=== PATIENT | female | born 1950 | race Caucasian/White ===

== ENCOUNTER 2017-11-27 09:03 | Outpatient (CLI) | payer MEDICARE | END 2017-11-27 09:04 | disposition home or self-care (01) | LOC: BICMAMMO 09:03 | PROVIDERS: ATTEND Family Medicine | DX: Z12.31 Encounter for screening mammogram for malignant neoplasm of breast (principal) | CPT/HCPCS: 77063; 77067 ==

== ENCOUNTER 2019-01-05 06:57 | Inpatient (IN) | payer MEDICARE ==
[2019-01-05] MEDS ORDERED: Ondansetron PF 4 MG/2 ML Vial ONE ×3 (07:25→11:49)
[2019-01-05 08:25] LABS: ALT (SGPT) 17 U/L (8-55); AST (SGOT) 20 U/L (5-34); Albumin 3.9 g/dL (3.4-4.8); Alkaline Phosphatase 145 U/L (40-110); Anion Gap 17 mmol/L (10-20); BUN (Urea Nitrogen) 9 mg/dL (9.8-20.1); Bilirubin, Total 0.7 mg/dL (0.2-1.2); Calc. Creatinine Clearance 0 mL/min (70-130); Calcium 9.5 mg/dL (7.8-10.44); Carbon Dioxide 25 mmol/L (23-31); Chloride 98 mmol/L (98-107); Estimated GFR-MDRD 87; Glucose 121 mg/dL (80-115); Lipase 10 U/L (8-78); Magnesium 1.9 mg/dL (1.6-2.6); Protein, Total 6.9 g/dL (6.0-8.3); Sodium 137 mmol/L (136-145)
[2019-01-05 08:30] LABS: Potassium 2.9 mmol/L (3.5-5.1)
[2019-01-05 08:33] LABS: Band 39 % (5-11); Hemoglobin 14.6 g/dL (12.0-16.0); Lymphocytes 6 % (21-51); MDiff Complete? YES; Mean Corpuscular Hemoglobin 31.9 pg (27.0-31.0); Mean Corpuscular Volume 96.6 fL (78.0-98.0); Mean Platelet Volume 7.8 fL (7.4-10.4); Monocytes 19 % (0-10); Neutrophil 36 % (42-75); Platelet Count 226 thou/uL (130-400); Red Blood Cell (RBC) Count 4.58 mill/uL (4.20-5.40)
[2019-01-05] MEDS ORDERED: Morphine 2 MG/ML SYRINGE ONE (08:37)
[2019-01-05] MEDS ORDERED: Potassium Chloride 40 MEQ in Sodium Chloride 0.9% 250 ML 250 ML IVPB SCH (09:00)
--- NOTE | 2019-01-05 09:28 | CT ---
EXAM: CT abdomen and pelvis with IV contrast PROVIDED CLINICAL HISTORY: Abdominal pain COMPARISON: None FINDINGS: The visualized lung bases are free of significant opacity. The solid abdominal organs demonstrate an unremarkable CT appearance. There are numerous loops of dilated fluid-filled small bowel, most conspicuously involving the distal ileum. There is a focal area of narrowing involving the terminal ileum with abrupt transition to normal caliber bowel distal to this. There is a 1.5 cm enhancing mass within the lumen of the termina l ileum in this region. There is minimal small bowel-small bowel intussusception. There is no inflammatory fat stranding or free air apparent. There is minimal free pelvic fluid. There is no evid ence for appendicitis. There are prominent by number, nonenlarged lymph nodes present within the right lower quadrant mesent tim. The regional major vascular structures appear unremarkable. The osseous structures demonstrate no concerning lytic or blastic lesions. IMPRESSION: Small bowel obstruction due to enhancing mass within the terminal ileum. Prominent by number but not enlarged lymph nodes are present within the right lower quadrant mesentery.
[2019-01-05] MEDS ORDERED: Dexamethasone 20 MG/5 ML VIAL ONE (09:53)
[2019-01-05] MEDS ORDERED: diphenhydrAMINE 50 MG/ML VIAL ONE (09:53)
[2019-01-05] MEDS ORDERED: Ketorolac Tromethamine 30 MG/ML VIAL ONE (09:53)
[2019-01-05] MEDS ORDERED: Succinylcholine Chloride 20 MG/ML 10 ml SYRINGE FS ONE (09:53)
[2019-01-05] MEDS ORDERED: PROPOFOL 200 MG/20 ML VIAL ONE (09:53)
[2019-01-05] MEDS ORDERED: Glycopyrrolate 0.2 MG/ML 5 ML SYRINGE ONE (09:53)
[2019-01-05] MEDS ORDERED: Rocuronium Bromide 10 MG/ML (10ML VIAL) ONE (09:53)
[2019-01-05] MEDS ORDERED: Esmolol 100 MG/10 ML VIAL ONE (09:53)
[2019-01-05] MEDS ORDERED: PHENYLEPHRINE-NS 100 MCG/ML 10 ML SYRINGE ONE (09:53)
[2019-01-05] MEDS ORDERED: Iopamidol-370 76% 500 ML 1 ML ONE (11:57)
[2019-01-05] MEDS ORDERED: Ondansetron ODT 4 MG TAB SL PRN (12:36)
[2019-01-05] MEDS ORDERED: Ondansetron PF 4 MG/2 ML Vial IVP PRN ×3 (12:36→19:41)
[2019-01-05] MEDS ORDERED: Morphine 2 MG/ML SYRINGE SLOW IVP PRN (12:36)
[2019-01-05] MEDS ORDERED: Lactated Ringer's 1,000 ML IV SCH (12:45)
[2019-01-05 12:48] VITALS: BMI 21.7
[2019-01-05] MEDS ORDERED: Fentanyl 100 MCG/2 ML VIAL SLOW IVP PRN ×2 (13:09)
[2019-01-05] MEDS ORDERED: Acetaminophen 1,000 MG in Premix Bag 1 BAG IVPB PRN (13:09)
[2019-01-05] MEDS ORDERED: Levofloxacin 500 mg/D5W 100 ml Premix Bag ONE (16:11)
[2019-01-05] MEDS ORDERED: Fentanyl 100 MCG/2 ML VIAL ONE (16:22)
--- NOTE | 2019-01-05 16:30 | HP ---
CHIEF COMPLAINT: Abdominal pain. HISTORY OF PRESENT ILLNESS: This is a 68-year-old female with a few day history of diarrhea. She had vomiting x1 today. She notes severe diffuse abdominal pain, seen in the emergency department, where a CT scan reveals evidence of intussusception in the right lower quadrant. There is obstruction of the small intestine near the terminal ileum, likely with a mass in the area. No evidence of perforation. The patient denies previous history of abdominal surgery. She had vaginal hysterectomy. No history of chronic abdominal pain, weight loss, anorexia, food fear or other malignancy. Pain is improved after some pain medicine. No family history of GI malignancy or polyposis syndrome. PAST MEDICAL HISTORY: Includes hypertension and hyperlipidemia. SURGICAL HISTORY: Vaginal hysterectomy. MEDICATIONS: Medicines taken daily included; 1. Ibuprofen and Tylenol p.r.n. 2. Atorvastatin. 3. Ecotrin. 4. Metoprolol. ALLERGIES: AMOXICILLIN, SULFA. SOCIAL HISTORY: No smoking, alcohol, or other drugs. REVIEW OF SYSTEMS: Ten-system review of systems is otherwise negative unless described above. PHYSICAL EXAMINATION: VITAL SIGNS: Blood pressure is 136/87, pulse 101, respirations 18, temperature 98.7. HEENT: Sclerae anicteric. Oropharynx, clear. NECK: No lymphadenopathy. CHEST: Clear. HEART: Regular rate and rhythm. ABDOMEN: Diffusely tender with guarding and rebound tenderness. No obvious abdominal or inguinal hernias. EXTREMITIES: No ischemia or edema to extremities. LABORATORY DATA: White blood cell count is 7, hemoglobin 14, platelet count is 226. Sodium 137, potassium 2.9, creatinine 0.67, glucose 121. She did have 39 bands on white count. CT scan as above. 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 PLAN: Exploratory laparotomy. Risks, benefits, and alternatives were discussed. She gives consent. We will do this today. DIAGNOSES: Hypertension and hyperlipidemia. Job ID: [id number]
[2019-01-05] MEDS ORDERED: Promethazine HCl 25 MG/ML VIAL IM PRN ×3 (18:01→19:41)
[2019-01-05] MEDS ORDERED: Promethazine HCl 25 MG/ML VIAL SLOW IVP PRN (18:01)
[2019-01-05] MEDS ORDERED: Ondansetron HCl/PF 4 MG/2 ML Vial IVP PRN (18:01)
[2019-01-05] MEDS ORDERED: Zolpidem Tartrate 5 MG TAB PO PRN (18:02)
[2019-01-05] MEDS ORDERED: diphenhydrAMINE 50 MG/ML VIAL IM PRN (18:02)
[2019-01-05] MEDS ORDERED: diphenhydrAMINE 50 MG/ML VIAL IVP PRN (18:02)
[2019-01-05] MEDS ORDERED: diphenhydrAMINE 25 MG CAP PO PRN (18:02)
[2019-01-05] MEDS ORDERED: HYDROmorphone 10 mg/100 ml CADD IVPB PRN (18:02)
[2019-01-05] MEDS ORDERED: Naloxone HCl 0.4 mg/ml Vial IV PRN (18:02)
[2019-01-05] MEDS ORDERED: Communication Order-Pharmacy FS SCH (18:15)
[2019-01-05] MEDS ORDERED: Promethazine HCl 25 MG/ML VIAL ONE (18:17)
--- NOTE | 2019-01-05 18:32 | OP ---
DATE OF PROCEDURE: 01/05/2019 PREOPERATIVE DIAGNOSES: 1. 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 2. Intussusception. POSTOPERATIVE DIAGNOSES: 1. 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 2. Intussusception. PROCEDURE PERFORMED: Open right colectomy with the removal of terminal ileum including tumor. ANESTHESIA: General. ESTIMATED BLOOD LOSS: 50 mL. COMPLICATIONS: None. FINDINGS: High-grade obstruction in the terminal ileum in the area of the tumor. There was lymphadenopathy as well. DESCRIPTION OF PROCEDURE: The patient was taken to the operating room and laid supine on the operating room table. After general anesthetic was obtained, a Coelho was placed. The abdomen was prepped and draped in a sterile fashion. Midline incision was made. Abdominal cavity was entered carefully. In the terminal ileum, there was a tumor right before the cecum. There was some lymphadenopathy in this area. There were lymph nodes at the base and along the right ileocolic vessels. The AYAAN 75 stapler was fired across the ileum proximal to this area and an area viable by intestine. The ascending colon was mobilized along the white line of Toldt. The hepatic flexure was mobilized in the usual fashion. In the proximal transverse colon, a AYAAN 75 stapler was fired across the colon. The resultant mesentery including the base of the ileocolic vessel, it was taken using Ashley clamp and silk ties as well as the Impact LigaSure. The specimen was sent to Path for final diagnosis. The small bowel was able to be brought up against the transverse colon in an isoperistaltic fashion. A lyrs-rl-[id number] anastomosis was performed. The common enterotomy was closed transversely using Vicryl suture. The mesenteric defect was closed using silk suture. There was no evidence of ischemia to the anastomosis. The small bowel was placed in its proper orientation. There was no other pathology in the entire examined abdomen. There was no obvious liver metastasis. NG tube was felt to be in good position in the stomach. All instrument counts, needle counts, and lap counts were correct. Midline fascia was closed from the top and bottom and tied in the middle. Subcutaneous tissues were irrigated and the skin was closed using 3-0 Vicryl, 4-0 Monocryl, and Dermabond. The patient was sent to Recovery in stable condition. All instrument counts, needle counts, and lap counts were correct. Job ID: [id number]
[2019-01-05] MEDS ORDERED: D5 1/2 NS w/20 mEq KCL 1,000 ML ONE (19:24)
[2019-01-05] MEDS ORDERED: hydrALAZINE 20 MG/ML VIAL SLOW IVP PRN (19:41)
[2019-01-05] MEDS: Enoxaparin Sodium 40 MG/0.4 ML SYRINGE SC SCH (20:33)
[2019-01-05] MEDS: D5 1/2 NS w/20 mEq KCL 1,000 ML IV SCH (20:33)
[2019-01-05] MEDS: Famotidine/PF 20 mg/2ml Vial SLOW IVP SCH (20:33)
[2019-01-05] MEDS: Famotidine 20 MG TAB PO SCH (20:42)
[2019-01-05] MEDS: Acetaminophen 1,000 MG in Premix Bag 1 BAG IVPB SCH (23:51)
[2019-01-06] MEDS: D5 1/2 NS w/20 mEq KCL 1,000 ML IV SCH ×3 (05:37→16:01)
[2019-01-06] MEDS: Acetaminophen 1,000 MG in Premix Bag 1 BAG IVPB SCH (05:38)
[2019-01-06 05:42] LABS: #Lymphocytes 0.6 thou/uL (1.20-3.40); #Monocytes 0.5 thou/uL (0.11-0.59); #Neutrophils 5.2 thou/uL (1.40-6.50); %Basophils 0.1 % (0.0-1.0); %Eosinophils 0.1 % (0.0-10.0); %Lymphocytes 9.2 % (21.0-51.0); %Monocytes 7.9 % (0.0-10.0); %Neutrophils 82.8 % (42.0-75.0); Mean Corpuscular HGB CONC 33.3 g/dL (32.0-36.0); Mean Corpuscular Hemoglobin 32.5 pg (27.0-31.0); Mean Corpuscular Volume 97.4 fL (78.0-98.0); Platelet Count 201 thou/uL (130-400); Red Blood Cell (RBC) Count 3.69 mill/uL (4.20-5.40); White Blood Cell (WBC) Count 6.3 thou/uL (4.8-10.8)
[2019-01-06 06:02] LABS: Anion Gap 9 mmol/L (10-20); BUN (Urea Nitrogen) 9 mg/dL (9.8-20.1); Calc. Creatinine Clearance 86 mL/min (70-130); Calcium 8.2 mg/dL (7.8-10.44); Carbon Dioxide 27 mmol/L (23-31); Chloride 107 mmol/L (98-107); Estimated GFR-MDRD Greater than 90; Glucose 190 mg/dL (80-115); Sodium 139 mmol/L (136-145)
[2019-01-06] MEDS: Famotidine 20 MG TAB PO SCH ×2 (07:29→21:54)
--- NOTE | 2019-01-06 07:51 | PDOC.GSPN ---
Surgery Progress Note: Subj - Subjective Narrative: Ms. Arvizu is a 68 year old female POD#1 following open right colectomy with removal of terminal ileum for diagnosis of high grade obstruction from small bowel tumor. She is feeling much better this AM. Pain is well controlled with TSO pump. She is currently NPO other than ice chips. NG tube put out 50 mL overnight. She denies nausea, vomiting. She has not yet had a bowel movement or passed gas, and she denies diarrhea. Her alejandre was removed this morning but she has not yet voided on her own. She walked a lap around the silva with PT this morning. She denies fever, chills, shortness of breath or chest pain. Surgery Progress Note: Obj - Vital signs Vital signs: Vital Signs - Most Recent Temp Pulse Resp BP Pulse Ox 97.9 F 75 18 129/82 96 01/06/19 07:22 01/06/19 07:22 01/06/19 07:22 01/06/19 07:22 01/06/19 07:22 - Physical Exam General: no distress Cardiovascular: regular rate and rhythm Respiratory: clear to auscultation Abdomen: soft, nondistended, decreased bowel sounds, appropriately tender Wound: healing well Surgery Progress Note: Results - Labs Result Diagrams: 01/06/19 05:31 01/06/19 05:31 Lab results: Laboratory Results - last 24 hr 01/06/19 01/06/19 05:31 05:31 WBC 6.3 RBC 3.69 L Hgb 12.0 Hct 36.0 MCV 97.4 MCH 32.5 H MCHC 33.3 RDW 11.0 L Plt Count 201 MPV 7.0 L Neutrophils % 82.8 H Lymphocytes % 9.2 L Monocytes % 7.9 Eosinophils % 0.1 Basophils % 0.1 Neutrophils # 5.2 Lymphocytes # 0.6 L Monocytes # 0.5 Eosinophils # 0.0 Basophils # 0.0 Sodium 139 Potassium 4.0 Chloride 107 Carbon Dioxide 27 Anion Gap 9 L BUN 9 L Creatinine 0.60 Estimated GFR (MDRD) Greater than 90 Glucose 190 H Calcium 8.2 Surgery Progress Note: A/P - Plan Plan: Ms. Arvizu is a 68 year old female POD#1 following open right colectomy with removal of terminal ileum for diagnosis of high grade obstruction from small bowel tumor. 1. NG tube output 50 mL overnight. Bowel sounds heard this AM. Consider clamping tube and advancing to clears. 2. Encourage PT 3. Await pathology of mass. Follow up as appropriate. Addendum - Physician - Physician Attestation Date/Time: 01/06/19 9458 I personally performed or re-performed the physical examination and medical decision making. I have verified all student documentation or findings, including history, physical exam and/or medical decision making. Doing well. DC NG and Alejandre Allow clears Ambulate Await pathology
[2019-01-06] MEDS: Famotidine/PF 20 mg/2ml Vial SLOW IVP SCH ×2 (08:32→21:54)
[2019-01-06] MEDS ORDERED: Metoprolol Tartrate 50 MG TAB PO SCH (16:00)
[2019-01-06] MEDS: traMADol HCl 50 MG TAB PO PRN (18:45)
[2019-01-06] MEDS: Metoprolol Tartrate 50 MG TAB PO SCH (21:54)
[2019-01-06] MEDS: Enoxaparin Sodium 40 MG/0.4 ML SYRINGE SC SCH (21:54)
[2019-01-06] MEDS: Acetaminophen 1,000 MG in Premix Bag 1 BAG IVPB PRN (21:54)
[2019-01-07] MEDS: traMADol HCl 50 MG TAB PO PRN ×4 (00:48→23:54)
[2019-01-07] MEDS: Acetaminophen 1,000 MG in Premix Bag 1 BAG IVPB PRN (03:55)
--- NOTE | 2019-01-07 07:32 | PDOC.GSPN ---
Surgery Progress Note: Subj - Subjective Narrative: Ms. Arvizu is a 68 year old female POD#2 following open right colectomy with removal of terminal ileum for diagnosis of high grade obstruction from small bowel tumor. She is doing well this AM other than feeling more bloated with some cramping. She denies passing gas and has not yet had a bowel movement. NG tube was removed yesterday. She has been doing well on clear liquids and denies nausea, vomiting. Coelho was removed yesterday and she has had been voiding on her own. 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 She walked several laps around the halls yesterday. She denies chest pain, shortness of breath. Surgery Progress Note: Obj - Vital signs Vital signs: Vital Signs - Most Recent Temp Pulse Resp BP Pulse Ox 98.5 F 71 16 157/83 H 96 01/07/19 04:29 01/07/19 04:29 01/07/19 04:29 01/07/19 04:29 01/07/19 04:29 - Physical Exam General: no distress Cardiovascular: regular rate and rhythm Respiratory: clear to auscultation Abdomen: soft, positive bowel sounds (hyperactive bowel sounds), distended ( slight distension) Wound: healing well Surgery Progress Note: Results - Labs Result Diagrams: 01/06/19 05:31 01/06/19 05:31 Surgery Progress Note: A/P - Plan Plan: Ms. Arvizu is a 68 year old female POD#2 following open right colectomy with removal of terminal ileum for diagnosis of high grade obstruction from small bowel tumor. 1. Patient is tolerating clear liquids well. Denies nausea, vomiting. Consider advancing to full liquid diet. 2. Patient is feeling more distended this AM. Consider etiologies and treat as appropriate. 3. Continue pain medication as needed. 4. Encourage ambulation. 5. Awaiting pathology of mass. Follow up as appropriate. Addendum - Physician - Physician Attestation Date/Time: 01/07/19 7065 I personally performed or re-performed the physical examination and medical decision making. I have verified all student documentation or findings, including history, physical exam and/or medical decision making.
[2019-01-07] MEDS: Metoprolol Tartrate 50 MG TAB PO SCH ×2 (08:03→21:00)
[2019-01-07] MEDS: Famotidine 20 MG TAB PO SCH ×2 (08:03→21:00)
[2019-01-07] MEDS: D5 1/2 NS w/20 mEq KCL 1,000 ML IV SCH (08:20)
[2019-01-07] MEDS: Famotidine/PF 20 mg/2ml Vial SLOW IVP SCH ×2 (08:20→21:00)
[2019-01-07] MEDS ORDERED: HYDROcodone/Acetaminophen 7.5/325 mg Tablet PO PRN (11:05)
[2019-01-07] MEDS: Acetaminophen 325 MG TAB PO PRN ×2 (17:59→23:54)
[2019-01-07] MEDS ORDERED: Acetaminophen/Codeine 30-300mg Tablet PO PRN (18:52)
[2019-01-07] MEDS ORDERED: Metoprolol Tartrate 50 MG TAB PO SCH (21:00)
[2019-01-07] MEDS: Enoxaparin Sodium 40 MG/0.4 ML SYRINGE SC SCH (21:00)
[2019-01-07] MEDS: Acetaminophen/Codeine 30-300mg Tablet PO PRN (23:08)
[2019-01-08] MEDS: D5 1/2 NS w/20 mEq KCL 1,000 ML IV SCH ×2 (02:20→10:14)
[2019-01-08] MEDS: Acetaminophen 325 MG TAB PO PRN ×4 (07:11→20:33)
[2019-01-08] MEDS: traMADol HCl 50 MG TAB PO PRN ×3 (07:11→20:33)
--- NOTE | 2019-01-08 07:23 | PDOC.GSPN ---
Surgery Progress Note: Subj - Subjective Narrative: Ms. Arvizu is a 68 year old female POD#3 following open right colectomy with removal of terminal ileum for diagnosis of high grade obstruction from small bowel tumor. She is doing well this AM and feels less bloated. She reports passing gas and having a small bowel movement yesterday afternoon. She has been doing well on full liquids and denies nausea, vomiting. She walked several laps around the silva yesterday. Pain from the incision site is well controlled with pain medication. She did have an episode of high blood pressure last night, which was controlled with hydralazine. She denies chest pain, shortness of breath. Surgery Progress Note: Obj - Vital signs Vital signs: Vital Signs - Most Recent Temp Pulse Resp BP Pulse Ox 98.3 F 77 18 130/73 96 01/08/19 04:00 01/08/19 04:00 01/08/19 04:00 01/08/19 04:00 01/08/19 04:00 - Physical Exam General: no distress Cardiovascular: regular rate and rhythm Respiratory: clear to auscultation Abdomen: soft, positive bowel sounds, appropriately tender Wound: healing well Surgery Progress Note: Results - Labs Result Diagrams: 01/06/19 05:31 01/06/19 05:31 Surgery Progress Note: A/P - Plan Plan: Ms. Arvizu is a 68 year old female POD#3 following open right colectomy with removal of terminal ileum for diagnosis of high grade obstruction from small bowel tumor. 1. Patient is tolerating full liquids well. She is feeling less bloated this AM and had a small bowel movement yesterday. Denies nausea, vomiting. Advance diet as tolerated. 2. Continue pain medication as needed. 3. Encourage ambulation. 4. Awaiting pathology of mass. Follow up as appropriate. Addendum - Physician - Physician Attestation Date/Time: 01/08/19 3258 I personally performed or re-performed the physical examination and medical decision making. I have verified all student documentation or findings, including history, physical exam and/or medical decision making. Tolerating fulls but still feels bloated. Likely home tomorrow
[2019-01-08] MEDS: Famotidine/PF 20 mg/2ml Vial SLOW IVP SCH ×2 (08:02→20:35)
[2019-01-08] MEDS: Metoprolol Tartrate 50 MG TAB PO SCH ×2 (08:02→20:33)
[2019-01-08] MEDS: Famotidine 20 MG TAB PO SCH ×2 (08:02→20:33)
[2019-01-08] MEDS: Acetaminophen/Codeine 30-300mg Tablet PO PRN (10:16)
[2019-01-08] MEDS: Enoxaparin Sodium 40 MG/0.4 ML SYRINGE SC SCH (20:33)
[2019-01-09] MEDS: Acetaminophen 325 MG TAB PO PRN ×2 (02:33→10:24)
[2019-01-09] MEDS: traMADol HCl 50 MG TAB PO PRN ×2 (02:33→10:22)
[2019-01-09] MEDS: D5 1/2 NS w/20 mEq KCL 1,000 ML IV SCH ×2 (03:54→11:11)
--- NOTE | 2019-01-09 07:09 | PDOC.GSPN ---
Surgery Progress Note: Subj - Subjective Narrative: Ms. Arvizu is a 68 year old female POD#4 following open right colectomy with removal of terminal ileum for diagnosis of high grade obstruction from small bowel tumor. She is slept well overnight. She still feels some bloating and cramping but believes that this has been improving. She reports passing gas and having a small bowel movement yesterday. She has been tolerating full liquids and denies nausea, vomiting. She walked several laps around the halls yesterday. Pain from the incision site is well controlled with pain medication. She denies chest pain, shortness of breath. Surgery Progress Note: Obj - Vital signs Vital signs: Vital Signs - Most Recent Temp Pulse Resp BP Pulse Ox 98.1 F 70 16 162/90 H 97 01/09/19 03:22 01/09/19 03:22 01/09/19 03:22 01/09/19 03:22 01/09/19 03:22 - Physical Exam General: no distress Cardiovascular: regular rate and rhythm Respiratory: clear to auscultation Abdomen: soft, non tender, positive bowel sounds Wound: healing well Surgery Progress Note: Results - Labs Result Diagrams: 01/06/19 05:31 01/06/19 05:31 Surgery Progress Note: A/P - Plan Plan: Ms. Arvizu is a 68 year old female POD#4 following open right colectomy with removal of terminal ileum for diagnosis of high grade obstruction from small bowel tumor. 1. Patient is tolerating full liquids. She continues to feel some bloating but denies nausea, vomiting. Advance diet as tolerated. 2. Continue pain medication as needed. 3. Encourage ambulation. 4. Awaiting pathology of mass. Follow up as appropriate. 5. Anticipate discharge today.
[2019-01-09] MEDS: Famotidine 20 MG TAB PO SCH (10:23)
[2019-01-09] MEDS: Metoprolol Tartrate 50 MG TAB PO SCH (10:23)
[2019-01-09] MEDS: Famotidine/PF 20 mg/2ml Vial SLOW IVP SCH (10:31)
[2019-01-09 11:19] VITALS: BP 148/94; TEMP 98.3
--- NOTE | 2019-01-09 11:54 | DIS ---
DATE OF ADMISSION: 01/05/2019 DATE OF DISCHARGE: 01/09/2019 ADMIT DIAGNOSES: Small bowel obstruction, small bowel tumor. DISCHARGE DIAGNOSES: Small bowel obstruction, small bowel tumor. PROCEDURES: Exploratory laparotomy, right colectomy by Dr. Fairchild without complication. CONDITION ON DISCHARGE: Improved. STAFF: Dr. Fairchild. HOSPITAL COURSE: On postop day #2 and #3, the patient is doing well. She is tolerating regular diet. She has had a bowel movement. Her pain is controlled. Her wounds are clear. She was discharged to home. She will follow up with me in 2 weeks. Pathology pending at the time of this dictation. Prescriptions for tramadol and Zofran, sent to [facility] [address]. She is going to resume her other medicines as before surgery. Job ID: [id number]
--- NOTE | 2019-01-14 19:52 | PQF ---
HOME BUSH BRYAN DAVID MD [id number] [facility] A- [id number] CLINICAL DOCUMENTATION CLARIFICATION FORM: POST DISCHARGE Addendum to original discharge summary date: ____ Late entry note date: __ DATE: 01/14/19 ATTN: Abran Gilbert Please exercise your independent, professional judgment in responding to the clarification form. Clinical indicators are provided on the bottom of this form for your review Can you please further clarify the diagnosis based on the clinical indicators below? ___ Final Diagnosis on the Pathology report: "well differentiated neuroendocrine tumor, grade 1" ___ Progress Notes indicate: Small bowel tumor Clarification of Pathology report: Please check appropriate box(s): [ x] Agree w the pathology finding of:__small bowel neuroendocrine tumor [ ] Other explanation of pathology findings (please specify) [ ] Other diagnosis [ ] Unable to determine For continuity of documentation, please document condition throughout progress notes and discharge summary. Thank You. CLINICAL INDICATORS - SIGNS/ SYMPTOMS / LABS PTH surgical specimen pg.1- "well differentiated neuroendocrine tumor, grade 1" H and P pg.1- "she notes severe diffuse abdominal pain" H and P pg.1- "There is obstruction of the small intestine near the terminal ileum, likely with a mass in the area" H and P pg.2- "intussusception due to small bowel tumor" DS pg.1- "Small bowel tumor" DS pg.1- "Pathology is pending on the time of this dictation" RISK FACTORS Intussusception- H and P pg.1 Hypertension- H and P pg.2 Hyperlipidemia- H and P pg.2 TREATMENTS Abdomen/Pelvis CT 01/05 Open right colectomy with removal of terminal ileum including tumor- OP report 01/05 Dr. Fairchild IV Fluids- MAR 01/05 (This form is maintained as a part of the permanent medical record) 2014 [employer]. All Rights Reserved [email or web address] [not provided] MTDD
== END 2019-01-09 12:57 | disposition home or self-care (01) | DRG 827 ==
LOC: ERS 06:57 → SURG A 10:45
PROVIDERS: ADMIT Surgery; ATTEND Surgery
PROC: 0DBF0ZZ Excision of Right Large Intestine, Open Approach (ICD-10-PCS; principal; 2019-01-05)
PROC: 0DBB0ZZ Excision of Ileum, Open Approach (ICD-10-PCS; 2019-01-05)
DX: D3A.8 Other benign neuroendocrine tumors (principal); K56.1 Intussusception; E78.5 Hyperlipidemia, unspecified; I10 Essential (primary) hypertension; D72.825 Bandemia; Z88.1 Allergy status to other antibiotic agents; Z88.2 Allergy status to sulfonamides; Z79.82 Long term (current) use of aspirin; Z79.899 Other long term (current) drug therapy; Z90.711 Acquired absence of uterus with remaining cervical stump
CPT/HCPCS: 36415; 74177; 80048; 80053; 83605; 83690; 83735; 85025; 85652; 88309; 88341; 88342; 88360; 93005; 96361; 96365; 96366; 96375; 96376; J0131; J0360; J1100; J1200; J1650; J1885; J1956; J2270; J2405; J2550; J2704; J3010; J3480; J7050; Q9967; S0028

== ENCOUNTER 2020-01-20 11:02 | Outpatient (CLI) | payer MEDICARE ==
[2020-01-20] MEDS ORDERED: Iopamidol-370 76% 500 ML 1 ML ONE (13:02)
--- NOTE | 2020-01-20 13:51 | CT ---
CT ABDOMEN AND PELVIS PERFORMED WITH INTRAVENOUS CONTRAST ENHANCEMENT: HISTORY: Malignant carcinoid tumor. COMPARISON: 01/05/2019 exam. FINDINGS: The lung bases show some scarring. No infiltrative process. The liver, spleen, pancreas, and gallbladder regions all appear unremarkable. Right and left adrenal glands and right and left kidneys are normal in size. No significant periaort ic adenopathy. CT OF PELVIS PERFORMED WITH CONTRAST ENHANCEMENT: The lymph nodes in the ileocolic chain within the right lower quadrant have decreased in size and num chitra. The largest node now seen is an approximately 8 mm node seen on axial image 52. The presence o f the oral contrast degrades evaluation of the terminal ileal mass. I do not see a definitive mass l esion. No significant pelvic lymphadenopathy or mass. Review of osseous structures shows some arthritic change to the spine. IMPRESSION: The mass in the region of th terminal ileum is not definitely visualized on this exam. There has bee n a definite decrease in size and number of the ileocolic lymph nodes. POS: KAROLYN
== END 2020-01-20 11:03 | disposition home or self-care (01) ==
LOC: BICCT 11:02
PROVIDERS: ATTEND Internal Medicine Hematology & Oncology
DX: C7A.8 Other malignant neuroendocrine tumors (principal); C7A.021 Malignant carcinoid tumor of the cecum; R59.0 Localized enlarged lymph nodes
CPT/HCPCS: 36415; 74177; 82565; 85025; Q9967

== ENCOUNTER 2022-07-29 07:30 | Outpatient (CLI) | payer MEDICARE | END 2022-07-29 07:31 | disposition home or self-care (01) | LOC: SCSMRI 07:30 | PROVIDERS: ATTEND Orthopaedic Surgery | DX: M24.812 Other specific joint derangements of left shoulder, not elsewhere classified (principal); M75.112 Incomplete rotator cuff tear or rupture of left shoulder, not specified as traumatic; M67.912 Unspecified disorder of synovium and tendon, left shoulder; S43.432A Superior glenoid labrum lesion of left shoulder, initial encounter ==

== ENCOUNTER 2022-08-17 09:23 | Outpatient (CLI) | payer MEDICARE ==
[2022-08-17 11:17] LABS: Bilirubin Neg (Negative); Blood, Urine Negative (Negative); Clarity Clear (Clear); Glucose, Urine (Dipstick) Normal (Negative); Ketone, Urine Negative (Negative); Leukocyte Negative (Negative); Nitrite Negative (Negative); Protein, Urine (Dipstick) Negative (Neg-Trace); Urobilinogen Normal mg/dL (Less than 2); pH, Urine 6.5 (5.0-9.0)
[2022-08-17 11:22] LABS: Hemoglobin 13.3 g/dL (12.0-15.5); Mean Corpuscular HGB CONC 32.4 g/dL (32.0-36.0); Mean Corpuscular Hemoglobin 32.1 pg (27.0-33.0); Mean Platelet Volume 11.1 fl (7.4-10.4); Platelet Count 210 10x3/uL (150-450); RBC Distribution Width 12.2 % (11.5-14.5); Red Blood Cell (RBC) Count 4.14 10x6/uL (3.90-5.03); White Blood Cell (WBC) Count 5.8 10x3/uL (3.5-10.5)
[2022-08-17 11:24] LABS: Bacteria/HPF None Seen HPF (None Seen); RBC/HPF None Seen HPF (0-3); Squamous Epithelial None Seen HPF (0-3); WBC/HPF None Seen HPF (0-3)
[2022-08-17 11:35] LABS: Prothrombin Time 10.5 sec (9.5-12.1)
[2022-08-17 11:47] LABS: Anion Gap 12 mmol/L (10-20); BUN (Urea Nitrogen) 12 mg/dL (9.8-20.1); Calc. Creatinine Clearance 0 mL/min (70-130); Calcium 9.6 mg/dL (7.8-10.44); Carbon Dioxide 29 mmol/L (23-31); Chloride 104 mmol/L (98-107); Estimated GFR 89; Glucose 70 mg/dL (83-110); Potassium 3.8 mmol/L (3.5-5.1); Sodium 141 mmol/L (136-145)
== END 2022-08-17 09:24 | disposition home or self-care (01) ==
LOC: LABBT 09:23
PROVIDERS: ATTEND Orthopaedic Surgery
DX: Z01.818 Encounter for other preprocedural examination (principal); M75.112 Incomplete rotator cuff tear or rupture of left shoulder, not specified as traumatic
CPT/HCPCS: 71046; 80048; 81001; 85027; 85610; 93005; 93010

== ENCOUNTER 2022-08-19 08:21 | Day surgery (SDC) | payer MEDICARE ==
[2022-08-17 10:18] VITALS: BMI 19.3
[2022-08-19] MEDS ORDERED: Midazolam HCl 2 mg/2 ml Vial ONE (08:43)
[2022-08-19] MEDS ORDERED: Ropivacaine 0.5% HCl/PF (150 MG/30 ML VIAL) ONE (08:43)
[2022-08-19] MEDS ORDERED: fentaNYL 50 mcg/mL 1 mL Vial ONE ×2 (08:43→10:02)
[2022-08-19] MEDS ORDERED: Bupivacaine/Epinephrine 0.25% 30 ML VIAL ONE (09:56)
[2022-08-19] MEDS ORDERED: Clindamycin/D5W 900 mg/50 ml Premix Bag ONE (10:17)
[2022-08-19] MEDS ORDERED: Lidocaine 1% PF 5 ML VIAL ONE (10:28)
[2022-08-19] MEDS ORDERED: Glycopyrrolate 0.2 MG/ML 5 ML SYRINGE ONE (10:28)
[2022-08-19] MEDS ORDERED: ePHEDrine Sulfate 50 MG/10 ML VIAL ONE (10:28)
[2022-08-19] MEDS ORDERED: Ketorolac Tromethamine 30 MG/ML VIAL ONE (10:28)
[2022-08-19] MEDS ORDERED: PROPOFOL 200 MG/20 ML VIAL ONE (10:28)
[2022-08-19] MEDS ORDERED: NEOSTIGMINE 3 MG/3 ML SYR 3 MG/3 ML SYRINGE ONE (10:28)
[2022-08-19] MEDS ORDERED: Rocuronium Bromide 10 MG/ML (10ML VIAL) ONE (10:28)
[2022-08-19] MEDS ORDERED: Dexamethasone 20 MG/5 ML VIAL ONE (10:28)
[2022-08-19] MEDS ORDERED: Ondansetron PF 4 MG/2 ML Vial ONE (10:28)
[2022-08-19] MEDS ORDERED: Ropivacaine 0.2% 550 ML 550 ML NERVE BLCK SCH (13:00)
[2022-08-19] MEDS ORDERED: Zolpidem Tartrate 5 MG TAB PO PRN (13:00)
[2022-08-19] MEDS ORDERED: Promethazine HCl 25 MG/ML VIAL IM PRN (13:00)
[2022-08-19] MEDS ORDERED: Ondansetron PF 4 MG/2 ML Vial IVP PRN (13:00)
== END 2022-08-19 14:34 | disposition home or self-care (01) ==
LOC: SDC 08:21
PROVIDERS: ATTEND Orthopaedic Surgery
PROC: 0RNK4ZZ Release Left Shoulder Joint, Percutaneous Endoscopic Approach (ICD-10-PCS; principal; 2022-08-19)
PROC: 0LS40ZZ Reposition Left Upper Arm Tendon, Open Approach (ICD-10-PCS; 2022-08-19)
DX: M75.112 Incomplete rotator cuff tear or rupture of left shoulder, not specified as traumatic (principal); M75.42 Impingement syndrome of left shoulder; M75.22 Bicipital tendinitis, left shoulder; M24.812 Other specific joint derangements of left shoulder, not elsewhere classified; M19.012 Primary osteoarthritis, left shoulder; E78.00 Pure hypercholesterolemia, unspecified; I10 Essential (primary) hypertension; Z90.710 Acquired absence of both cervix and uterus; Z88.2 Allergy status to sulfonamides; Z91.011 Allergy to milk products; Z88.0 Allergy status to penicillin; Z79.899 Other long term (current) drug therapy
CPT/HCPCS: 23430; 29826; 29827; A4306; C1713 ×2; J3010; J1100; J1885; J2250; J2405; J2704; J2795; J3490

== ENCOUNTER 2022-10-14 09:53 | Outpatient (CLI) | payer MEDICARE | END 2022-10-14 09:54 | disposition home or self-care (01) | LOC: RAD 09:53 | PROVIDERS: ATTEND Family Medicine | DX: R13.10 Dysphagia, unspecified (principal) | CPT/HCPCS: 74230 ==